=== PATIENT | female | born 1940 | race Hispanic/Latino ===

== ENCOUNTER 2017-04-26 07:08 | Observation (INO) | payer MEDICARE, OTHER ==
[2017-04-23 10:31] VITALS: BMI 26.5
[2017-04-26] MEDS ORDERED: Bupivacaine 0.5% Inj(30mL) ONE (07:26)
[2017-04-26] MEDS ORDERED: Lidocaine 1% Inj (20ml) ONE (07:26)
[2017-04-26] MEDS ORDERED: Lactated Ringer's 1,000 ML IV ONE (08:00)
--- NOTE | 2017-04-26 08:40 | CP.SDSHP ---
Same Day Surgery H & P - History Proposed Procedure: Right foot 5th digit PIPJ arthroplasty and excision of bone 4th digit Pre-Op Diagnosis: Right foot 4th digit bone spur and 5th digit hammertoe - Previous Medical/Surgical History Comments: hypercholesterolemia, hypothyroidism Previous Surgical History: mandible sx - 15 years ago - Allergies Allergies: Allergies No Known Allergies Allergy (Verified 04/23/17 10:31) - Physical Exam Vital Signs: Vital Signs 04/26/17 08:06 Temperature 97.9 F Pulse Rate 65 Respiratory 18 Rate Blood Pressure 153/86 H O2 Sat by Pulse 95 Oximetry Mental Status: Alert & Oriented x3 Neuro: WNL Heart: WNL Lungs: WNL GI: WNL - {Optional Preform as Required} Integument: Other (Erythema and edema to 5th digit) Ortho: Other (Pain on palpation right 5th digit) - Impression Impression: Pt was seen and examined in [facility]. Pt NPO status was confirmed. All Pre-op testing and clearance was in the chart. Pt has exhausted all conservative treatment at this time and is opting for surgical intervention. Pt was explained procedure and post-operative course. All pt's questions were answered to satisfaction. No guarantees were made. Pt understands all risks, benefits and complications of procedure. Pt will follow-up with Dr. Rangel - Date & Time Date: 04/26/17 Time: 08:30 Short Stay Discharge - Short Stay Discharge Admitting Diagnosis/Reason for Visit: M20.41/M25.774 Disposition: TRANS TO OBS Referrals: Gus Rangel DPM [Primary Care Provider] -
--- NOTE | 2017-04-26 08:47 | CP.PCM.PN ---
Subjective - Date & Time of Evaluation Date of Evaluation: 04/26/17 Time of Evaluation: 08:30 - Subjective Subjective: 77 year old female patient with PMH hypercholesterolemia, hypothyroidism, hypercalcemia, and arthritis seen in [facility] for pre-operative evaluation for right foot 4th digit excision of bone spur and 5th digit PIPJ arthroplasty by Dr. Rangel. Patient is accompanied by her daughter at bedside. Patient has nguyễn having pain on her right 4th and 5th digits and has exhausted conservative treatment. Patient now opts for surgical intervention. NPO status confirmed. Patient is NAD and AAOx3. Patient denies N/V/F/D/C/SOB/CP. No other pedal complaints at this time. PMH: hypercholesterolemia, hypothyroidism, hypercalcemia PSH: mandible surgery approx. 15 years ago Meds: levothyroxine, calcium medication (unknown name) All: NKDA SH: No ETOH, 1-2 cigarettes a day x50 years FH: unknown Objective - Vital Signs/Intake and Output Vital Signs (last 24 hours): Temp Pulse Resp BP Pulse Ox 97.9 F 65 18 153/86 H 95 04/26/17 08:06 04/26/17 08:06 04/26/17 08:06 04/26/17 08:06 04/26/17 08:06 - Constitutional Appears: Well, Non-toxic, No Acute Distress - Extremities Exam Additional comments: Vasc: DP and PT pulses palpable 2/4 b/l. CFT <3 seconds to all digits. TG warm to cool. Edema noted right 5th digit Neuro: Gross sensation intact Derm: Erythema noted to 5th digit. Heloma durum noted to dorsum of 5th digit. Heloma molle noted to medial aspect of 5th digit Ortho: Pain upon ROM R 5th digit. Pain on palpation R 5th digit - Neurological Exam Neurological Exam: Alert, Awake, Oriented x3 - Psychiatric Exam Psychiatric exam: Normal Affect, Normal Mood Assessment and Plan - Assessment and Plan (Free Text) Assessment: 77 year old F with painful R 5th digit hammertoe and 4th digit bone spur Plan: Pt was seen and examined in [facility] Pt NPO status was confirmed All Pre-op testing and clearance was in the chart Pt has exhausted all conservative treatment at this time and is opting for surgical intervention Pt was explained procedure and post-operative course All pt's questions were answered to satisfaction No guarantees were made Pt understands all risks, benefits and complications of procedure Pt will follow-up with
[2017-04-26] MEDS ORDERED: Bupivacaine 0.5% 50 ML IJ ONE (08:50)
[2017-04-26] MEDS ORDERED: Lidocaine 1% Inj (20ml) IJ ONE (08:50)
[2017-04-26] MEDS ORDERED: Sodium Chloride 0.9% 500 ML IV SCH (09:00)
[2017-04-26] MEDS ORDERED: Propofol 10 mg/ml Inj (20 ML) ONE (09:14)
[2017-04-26] MEDS ORDERED: Midazolam 2 MG/2 ML VIAL ONE (09:15)
[2017-04-26] MEDS ORDERED: Oxycodone/Acetaminophen 5/325 mg Tab PO PRN ×2 (10:11)
--- NOTE | 2017-04-26 10:18 | PCM.SURG1 ---
Surgeon's Initial Post Op Note - Surgeon's Notes Surgeon: Dr. Rangel Mapping Technician: Greg Alcala PGY2 Type of Anesthesia: IV Sedation, Local Anesthesia Administered By: Dr. Dawson Pre-Operative Diagnosis: Right foot 5th digit hammertoe Operative Findings: see operative note. materials: 4-0 vicryl, 4-0 prolene. injectibles: 4cc 1% lidocaine plain Post-Operative Diagnosis: 1) right foot 5th digit hammertoe. 2) right foot 5th digit purulent abscess. 3) right foot 5th proximal phalanx possible osteomyelitis Operation Performed: Right foot incision and drainage with bone biopsy Specimen/Specimens Removed: 1) 5th digit wound culture. 2) 5th digit proximal interphalangeal joint, adjacent cortical margins- pathology Estimated Blood Loss: EBL {In ML}: 2 Blood Products Given: N/A Drains Used: No Drains Post-Op Condition: Good (ST elevation found intra-op, prompting observational period) Date of Surgery/Procedure: 04/26/17 Time of Surgery/Procedure: 09:00
[2017-04-26] MEDS ORDERED: HYDROmorphone 0.5 mg/0.5 ml ISec IVP PRN (10:49)
[2017-04-26 10:56] LABS: ALB/GLOB RATIO 1.3 (1.0-2.1); ALBUMIN 3.8 g/dL (3.5-5.0); ALT/SGPT 30 U/L (9-52); AST/SGOT 30 U/L (14-36); BLOOD UREA NITROGEN 17 mg/dl (7-17); GFR AFRICAN-AMERICAN > 60; GFR NON-AFRICAN AMERICAN > 60
[2017-04-26] MEDS ORDERED: Sodium Chloride 0.9% 1,000 ML IV SCH (11:00)
--- NOTE | 2017-04-26 11:14 | CARD ---
APPROVED REPORT EKG Measurement Heart [id number] <Conclusion> Normal sinus rhythm Normal ECG
[2017-04-26] MEDS ORDERED: Sodium Chloride 0.9% 1,000 ML IV ONE (12:35)
--- NOTE | 2017-04-26 16:15 | RAD ---
PROCEDURE: Right Foot Radiographs. HISTORY: s/p right foot surgery COMPARISON: None. FINDINGS: BONES: No acute fracture. Status post osteotomy of distal aspect 5th proximal phalanx and proximal aspect 5th middle phalanx. . JOINTS: Severe subluxation/dislocation suspected at 2nd MTP. 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 Bunion deformity. SOFT TISSUES: Diffuse soft tissue swelling over distal metatarsals. OTHER FINDINGS: None. IMPRESSION: Osteotomy 5th proximal and middle phalanges as described. Severe subluxation/ dislocation suspected at 2nd MTP. 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 Bunion.
--- NOTE | 2017-04-26 19:09 | CP.PCM.CON ---
History of Present Illness - History of Present Illness History of Present Illness: 77 y/o female with abnormal ekg post operatively. Pt received IV sedation for minor procedure. Her post op EKG reveals SR @ 72bpm, nml axis, nonspecific t wave flattening diffusely with 0.5 j point elevation in v1, v2. Pt denies symptoms of CP, sob, palp, LH, dizziness, syncope, near syncope. No edema, orthopnea, pnd. Pt denies any hx of syncopal or presyncopal events. Denies any fam hx of SCD or CAD. She denies personal hx of htn, DM, or CAD. She has a hx of dyslipidemia and 50 pyr hx of tobacco use. Today post operatively her bp is elevated, however she is in pain. Review of Systems - Constitutional Constitutional: absent: As Per HPI, Anorexia, Chills, Daytime Sleepiness, Excessive Sweating, Fatigue, Fever, Frequent Falls, Headache, Increased Appetite , Lethargy, Malaise, Night Sweats, Snoring, Sleep Apnea, Weight Gain, Weight Loss, Weakness, Other - EENT Eyes: absent: As Per HPI, Blind Spots, Blurred Vision, Change in Vision, Decreased Night Vision, Diplopia, Discharge, Dry Eye, Exophthalmos, Floaters, Irritation, Itchy Eyes, Loss of Peripheral Vision, Pain, Photophobia, Requires Corrective Lenses, Sees Flashes, Spots in Vision, Tunnel Vision, Other Visual Disturbances, Loss of Vision, Other Ears: absent: As Per HPI, Decreased Hearing, Ear Discharge, Ear Pain, Tinnitus, Abnormal Hearing, Disequilibrium, Dizziness, Other Nose/Mouth/Throat: absent: As Per HPI, Epistaxis, Nasal Congestion, Nasal Discharge, Nasal Obstruction, Nasal Trauma, Nose Pain, Post Nasal Drip, Sinus Pain, Sinus Pressure, Bleeding Gums, Change in Voice, Dental Pain, Dry Mouth, Dysphagia, Halitosis, Hoarsness, Lip Swelling, Mouth Lesions, Mouth Pain, Odynophagia, Sore Throat, Throat Swelling, Tongue Swelling, Facial Pain, Neck Pain, Neck Mass, Other - Breasts Breasts: absent: As Per HPI, Change in Shape, Mass, Pain, Nipple Discharge, Nipple Inversion, Skin Changes, Swelling, Other - Cardiovascular Cardiovascular: absent: As Per HPI, Acrocyanosis, Chest Pain, Chest Pain at Rest , Chest Pain with Activity, Claudication, Diaphoresis, Dyspnea, Dyspnea on Exertion, Edema, Irregular Heart Rhythm, Pain Radiating to Arm/Neck/Jaw, Leg Edema, Leg Ulcers, Lightheadedness, Orthopnea, Palpitations, Paroxysmal Nocturnal Dyspnea, Pedal Edema, Radiating Pain, Rapid Heart Rate, Slow Heart Rate, Syncope, Other - Respiratory Respiratory: absent: As Per HPI, Cough, Dyspnea, Hemoptysis, Dyspnea on Exertion , Wheezing, Snoring, Stridor, Pain on Inspiration, Chest Congestion, Excessive Mucous Production, Change in Mucous Color, Pain with Coughing, Other - Gastrointestinal Gastrointestinal: absent: As Per HPI, Abdominal Pain, Belching, Bloating, Change in Bowel Habits, Change in Stool Character, Coffee Ground Emesis, Constipation, Cramping, Diarrhea, Dyspepsia, Dysphagia, Early Satiety, Excessive Flatus, Fecal Incontinence, Heartburn, Hematemesis, Hematochezia, Loose Stools, Melena, Nausea, Odynophagia, Temesmus, Vomiting, Other - Genitourinary Genitourinary: absent: As Per HPI, Change in Urinary Stream, Difficulty Urinating, Dysuria, Flank Pain, Hematuria, Pyuria, Nocturia, Urinary Incontinence, Urinary Frequency, Urinary Hesitance, Urinary Urgency, Voiding Freq/Small Amts, Freq UTI, Hx Renal/Bladder Calculi, Hx /Renal Surgery, Bladder Distension, Other - Reproductive: Female Reproductive:Female: Post Menopausal. absent: As Per HPI, Amenorrhea, Amenorrhea/ Control, Currently Menstual, Cycle <21 Days, Cycle >35 Days, Cycle Variable, Menses 1-7 Days, Menses >/= 8 Days, Menses Variable, Cycle > 4 Weeks Between, No Menses for 6 Months, Heavy Menses, Light Menses, Normal Menses , Spotting Between Cycles, S/P Hysterectomy, Menopausal, Premenarche, Abnormal Vaginal Bleeding, Dysmenorrhea, Dyspareunia, Genital Lesions, Genital Pruritis, Pelvic Pain, Prolapse Symptoms, Sexual Dysfunction, Vaginal Discharge, Vaginal Dryness, Vaginal Odor, Vaginal Pruritis, Other - Menstruation Menstruation: Post Menopausal. absent: As Per HPI, Amenorrhea, Amenorrhea/ Control, Currently Menstual, Cycle <21 Days, Cycle >35 Days, Cycle Variable, Menses 1-7 Days, Menses >/= 8 Days, Menses Variable, Cycle > 4 Weeks Between, No Menses for 6 Months, Heavy Menses, Light Menses, Normal Menses, Spotting Between Cycles, S/P Hysterectomy, Menopausal, Premenarche, Abnormal Vaginal Bleeding, Dysmenorrhea, Other - Musculoskeletal Musculoskeletal: absent: As Per HPI, Abnormal Gait, Arthralgias, Atrophy, Back Pain, Deformity, Joint Swelling, Limited Range of Motion, Loss of Height, Muscle Cramps, Muscle Weakness, Myalgias, Neck Pain, Numbness, Radiating Pain into Limb, Stiffness, Tingling, Other - Integumentary Integumentary: absent: As Per HPI, Acne, Alopecia, Bleeding Lesions, Change in Hair, Change in Nails, Change in Pigmentation, Changing Lesions, Dry Skin, Erythema, Furuncle, Hirsutism, Lesions, New Lesions, Non-Healing Lesions, Photosensitivity, Pruritus, Rash, Skin Pain, Skin Ulcer, Sores, Striae, Swelling , Unusual Bruising, Wounds, Jaundice, Other - Neurological Neurological: absent: As Per HPI, Abnormal Gait, Abnormal Hearing, Abnormal Movements, Abnormal Speech, Behavioral Changes, Burning Sensations, Confusion, Convulsions, Disequilibrium, Dizziness, Numbness, Focal Weakness, Frequent Falls , Headaches, Lack of Coordination, Loss of Vision, Memory Loss, Paresthesias, Radicular Pain, Restless Legs, Sensory Deficit, Syncope, Tingling, Tremor, Vertigo, Weakness, Other Visual Disturbances, Other - Psychiatric Psychiatric: absent: As Per HPI, Abnormal Sleep Pattern, Anhedonia, Anxiety, Auditory Hallucinations, Behavioral Changes, Change in Appetite, Change in Libido, Confusion, Depression, Difficulty Concentrating, Hallucinations, Homicidal Ideation, Hopelessness, Irritability, Memory Loss, Mood Swings, Panic Attacks, Paranoia, Suicidal Ideation, Visual Hallucinations, Tactile Hallucinations, Other - Endocrine Endocrine: absent: As Per HPI, Change in Body Appearance, Change in Libido, Cold Intolorance, Deepening of Voice, Excessive Sweating, Fatigue, Flushing, Heat Intolorance, Increase in Ring/Shoe/Hat Size, Palpitations, Polydipsia, Polyphagia, Polyuria, Other - Hematologic/Lymphatic Hematologic: absent: As Per HPI, Easy Bleeding, Easy Bruising, Lymphadenopathy, Other Past Patient History - Tetanus Immunizations Tetanus Immunization: Unknown - Past Medical History & Family History Past Medical History?: Yes Past Family History: Reviewed and not pertinent - Past Social History Smoking Status: Current Some Days Smoker Alcohol: None Drugs: Denies Home Situation {Lives}: Alone - CARDIAC Hx Cardiac Disorders: Yes Hx Hypercholesterolemia: Yes - PULMONARY Hx Respiratory Disorders: No - NEUROLOGICAL Hx Neurological Disorder: No - HEENT Hx HEENT Problems: No - RENAL Hx Chronic Kidney Disease: No - ENDOCRINE/METABOLIC Hx Endocrine Disorders: Yes Hx Hypothyroidism: Yes - HEMATOLOGICAL/ONCOLOGICAL Hx Blood Disorders: No Hx Anemia: No Hx Blood Transfusions: No - INTEGUMENTARY Hx Dermatological Problems: No - MUSCULOSKELETAL/RHEUMATOLOGICAL Hx Musculoskeletal Disorders: Yes Hx Arthritis: Yes Hx Back Pain: Yes Hx Falls: No - GASTROINTESTINAL Hx Gastrointestinal Disorders: No - GENITOURINARY/GYNECOLOGICAL Hx Genitourinary Disorders: No - PSYCHIATRIC Hx Psychophysiologic Disorder: No - SURGICAL HISTORY Hx Surgeries: No - ANESTHESIA Hx Anesthesia: No Hx Anesthesia Reactions: No Hx Malignant Hyperthermia: No Has any member of the family had a problem w/ anesthesia?: No Meds Allergies/Adverse Reactions: Allergies Allergy/AdvReac Type Severity Reaction Status Date / Time No Known Allergies Allergy Verified 04/23/17 10:31 - Medications Medications: Current Medications Acetaminophen (Tylenol 325mg Tab) 650 mg PO Q6 PRN PRN Reason: Pain, Mild (1-3) Amlodipine Besylate (Norvasc) 2.5 mg PO DAILY [facility] Last Admin: 04/26/17 18:57 Dose: 2.5 mg Aspirin (Aspirin Chewable) 81 mg PO DAILY [facility] Cephalexin Monohydrate (Keflex) 500 mg PO Q6 [facility] Oxycodone/Acetaminophen (Percocet 5/325 Mg Tab) 1 tab PO Q6 PRN PRN Reason: Pain, moderate (4-7) Stop: 04/29/17 10:12 Last Admin: 04/26/17 13:55 Dose: 1 tab Oxycodone/Acetaminophen (Percocet 5/325 Mg Tab) 2 tab PO Q6 PRN PRN Reason: Pain, severe (8-10) Stop: 04/29/17 10:12 Physical Exam - Constitutional Appears: Well, No Acute Distress - Head Exam Head Exam: ATRAUMATIC, NORMAL INSPECTION, NORMOCEPHALIC - Eye Exam Eye Exam: EOMI, Normal appearance, PERRL Pupil Exam: NORMAL ACCOMODATION, PERRL - ENT Exam ENT Exam: Mucous Membranes Moist, Normal Exam - Neck Exam Neck exam: Positive for: Normal Inspection - Respiratory Exam Respiratory Exam: Clear to Auscultation Bilateral, NORMAL BREATHING PATTERN - Cardiovascular Exam Cardiovascular Exam: REGULAR RHYTHM, +S1, +S2, Systolic Murmur Additional comments: YURI 3/6, nonradiating, loudest at rusb, s1 and s2 present - GI/Abdominal Exam GI & Abdominal Exam: Normal Bowel Sounds, Soft. absent: Tenderness - Rectal Exam Rectal Exam: Deferred - Extremities Exam Extremities exam: Positive for: normal inspection Additional comments: LE dressing CDI post op - Back Exam Back exam: NORMAL INSPECTION - Neurological Exam Neurological exam: Alert, CN II-XII Intact, Oriented x3, Reflexes Normal - Psychiatric Exam Psychiatric exam: Normal Affect, Normal Mood - Skin Skin Exam: Dry, Intact, Normal Color, Warm Results - Vital Signs Recent Vital Signs: Last Vital Signs Temp 98.6 F 04/26/17 15:59 Pulse 77 04/26/17 18:57 Resp 16 04/26/17 15:59 BP 165/90 H 04/26/17 18:57 Pulse Ox 96 04/26/17 15:59 - Labs Result Diagrams: 04/26/17 10:25 Labs: Laboratory Results - last 24 hr 04/26/17 04/26/17 10:25 15:23 Sodium 140 Potassium 4.1 Chloride 111 H Carbon Dioxide 24 Anion Gap 9 L BUN 17 Creatinine 0.8 Est GFR ( Amer) > 60 Est GFR (Non-Af Amer) > 60 Random Glucose 100 Calcium 11.0 H Total Bilirubin 0.3 AST 30 ALT 30 Alkaline Phosphatase 52 Troponin I < 0.0120 Total Protein 6.8 Albumin 3.8 Globulin 3.0 Albumin/Globulin Ratio 1.3 - EKG Data EKG Interpreted by: Myself - EKG Data When Compared to Previous EKG: No Significant Change Assessment & Plan (1) Abnormal EKG Status: Acute (2) Dyslipidemia Status: Acute (3) Tobacco use disorder Status: Acute (4) Hypothyroid Status: Acute (5) Systolic murmur Status: Acute - Assessment and Plan (Free Text) Plan: Pt's ekg changes were present pre-op. THey are nonspecific and not indicative of mycordial infarction. Trop x 1 is negative. Pt has a murmur, and mildly elevated bp post op. I believe her bp elevation is secondary to pain. She may be d/c and should f/u in office in 2-3 weeks. Once pain free bp can be re- evaluated. At this point I would not send her home on bp medication. 65 min total care time. thank you.
--- NOTE | 2017-04-27 00:45 | OP ---
PROCEDURE DATE: 04/26/2017 PRIMARY SURGEON: Gus Rangel DPM MEDICAL BILLER/CODER: Greg Alcala, PGY-II. ANESTHESIOLOGIST: Gera Dawson MD ANESTHESIA TYPE: MAC IV sedation with local. PREOPERATIVE DIAGNOSIS: Right foot fifth digit hammertoe deformity. POSTOPERATIVE DIAGNOSES: 1. Right foot fifth digit hammertoe deformity. 2. Right foot fifth digit purulent abscess. 3. Right foot fifth digit proximal and middle phalynx osteomyelitis PROCEDURE PERFORMED: Right foot incision and drainage with bone biopsy. SPECIMENS: 1. Right foot wound culture. 2. Right foot fifth digit bone culture. INDICATIONS: The patient is a 77-year-old female with the above-stated diagnosis. The patient has exhausted all conservative treatment options and is now in need of surgical intervention. The patient signed a surgical consent after careful explanation of all risks, benefits, complications, and potential alternatives for the proposed surgical procedure. No guaranties were neither given nor implied. All questions were answered. The patient's n.p.o. status was confirmed prior to bringing the patient to the operating room. PREPARATION: The patient was brought into the operating room and placed on the operating room table in a supine position. A pneumatic tourniquet was applied in a supramalleolar position to the right lower extremity and set to 250 mmHg to be inflated once the procedure began. Once IV sedation was confirmed to have been achieved, the patient received a total of 10 mL of 0.5% Marcaine plain in a local block-type fashion to the right foot. Once local anesthesia was confirmed to have been achieved, the right foot was then prepped and draped in the usual sterile manner, tourniquet was inflated and the procedure began. PROCEDURE: Attention was then directed to the dorsal aspect of the right foot fifth digit. Using a #15 blade, a 2.5 cm ellipsoid incision was made on the dorsal aspect of the right fifth digit with apex oriented medially and proximal apex noted oriented laterally. Incision was extended down through subcutaneous tissue layers using #15 blade. Care was taken to avoid all vital neurovascular structures. All bleeders were cauterized and ligated as needed. At this point, capsule of the proximal interphalangeal joint was visualized. Transverse capsulotomy was performed at the proximal interphalangeal joint. Upon violation of the capsule, purulent discharge was expunged from the capsule and immediately cultured. This culture was then passed in the operative field to be sent to microbiology. At this time, capsule and periosteum attachments at the base of the middle phalanx and head of the proximal phalanx remnants were then freed of their capsular, periosteal and fibrous attachments. Nonviable subcutaneous tissue was resected and passed through the operative field to be sent for pathology. At this time, bone quality was assessed of the remaining head and shaft of the proximal phalanx. Nonviable sections were resected using double action bone cutter and passed from the operative field for pathology. Resection continued until strong cortical uncompromised bone was appreciated. Base of middle phalanx was then rongeured and the specimen was passed in the operative field to be sent to pathology. At this time, reduction and decrease of capsular edema and engorgement was assessed and found to be reduced. Incision site was then flushed with copious amounts of bacitracin introduced sterile saline. Once flush was complete, incision site was then visualized and found to be in adequate position. 3-0 Vicryl was used to reapproximate subcutaneous tissue layers. 4-0 Prolene was used to reapproximate dermal and skin layers. Incision site was then dressed with Betadine soaked Adaptic, 4x4 gauze, Kerlix, and Blayne. Attention was then directed into the fourth interspace on the medial aspect of the fifth digit, where a hyperkeratotic lesion was appraised using #15 blade. This lesion was sharply debrided of all nonviable hyperkeratotic tissue to reveal a macerated dermal junction, which bled freely. This area was then cleansed with sterile saline and was dressed with Betadine-soaked Adaptic, 4x4, Kerlix and Blayne. Patient received a total of 4 mL of 1% lidocaine plain in local block-type fashion to the right foot for postoperative pain control. Foot dressings were completed with Kerlix and light Erick wrap. POSTOPERATIVE CONDITION: The patient tolerated the procedure and anesthesia well, though it is noted that the patient had ST elevation during the last quarter of the case. The patient was escorted to the recovery room with neurovascular status intact. Additional assessment of EKG and cardiology consult placed to confirm that the patient is stable for outpatient discharge. Postoperative EKG shows normalization of ST elevation awaiting final clearance from colsulted mosaic technician. The patient admitted for observational period postoperatively. The patient will follow up with Dr. Gus Rangel on an outpatient basis upon full discharge. Greg Alcala DPM [facility]
--- NOTE | 2017-04-27 01:37 | HP ---
HISTORY OF PRESENT ILLNESS: Mrs. Adhikari is a 77-year-old female who was admitted to podiatry service and underwent right foot fifth digit arthroplasty and excision of bone of first digit. She was noted to have elevated blood pressure postop and abnormal EKG and was admitted to telemetry for monitoring. She denies chest pain or shortness of breath, feels very comfortable at present. Her daughter is at bedside and reportedly gives a history the patient not having coronary artery disease or hypertension in the past. PAST MEDICAL HISTORY: Hyperlipidemia and hypothyroidism. FAMILY HISTORY: Noncontributory. SOCIAL HISTORY: Does not smoke or drink. REVIEW OF SYSTEMS: Essentially unremarkable. PHYSICAL EXAMINATION GENERAL: The patient is alert and oriented and feels very comfortable in no apparent distress. VITAL SIGNS: Remarkable for blood pressure of 154/73 down from 173/93, pulse 71, respiratory rate 18. She is afebrile. O2 saturation 100% on room air. SKIN: Fair turgor. HEENT: Pupils are equal and reactive to light and accommodation. NECK: JVP flat. LUNGS: Clear. HEART: Regular. No murmurs or gallops. Breaths are normal. ABDOMEN: Soft, nontender. No organomegaly. There is no chest wall tenderness. EXTREMITIES: Right foot is wrapped in dry surgical gauze. Left lower extremity appears unremarkable. CENTRAL NERVOUS SYSTEM: Grossly intact. RECTAL AND GENITAL: Deferred. LABORATORY DATA: Current exams pending. EKG shows a regular sinus rhythm, but telemetry monitoring done in OR, showed ST elevation diffusely. IMPRESSION: Hypertensive urgency with abnormal EKG, one has to rule out acute coronary syndrome. PLAN: Cardiac evaluation of obtaining troponin q.8 hours for the next 24 hours. Repeat EKG in a.m. If the patient is clear by cardiology, they will discharge home. Case discussed with the patient and daughter. Gaurang Alves MD
[2017-04-27 08:19] VITALS: BP 153/76; PULSE 75; RESP 18; TEMP 97.9; O2SAT 95
--- NOTE | 2017-04-27 08:55 | CP.PCM.DIS ---
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 Status: Acute Hospital Course - Lab Results Lab Results: Micro Results 04/26/17 12:40 Toe Gram Stain - Final 04/26/17 12:40 Other: Please Indicate Gram Stain - Final Most Recent Lab Values Sodium 140 mmol/l (132-148) 04/26/17 10:25 Potassium 4.1 MMOL/L (3.6-5.0) 04/26/17 10:25 Chloride 111 mmol/L (98-107) H 04/26/17 10:25 Carbon Dioxide 24 mmol/L (22-30) 04/26/17 10:25 Anion Gap 9 (10-20) L 04/26/17 10:25 BUN 17 mg/dl (7-17) 04/26/17 10:25 Creatinine 0.8 mg/dL (0.7-1.2) 04/26/17 10:25 Est GFR ( Amer) > 60 04/26/17 10:25 Est GFR (Non-Af Amer) > 60 04/26/17 10:25 Random Glucose 100 mg/dL (65-105) 04/26/17 10:25 Calcium 11.0 mg/dL (8.4-10.2) H 04/26/17 10:25 Total Bilirubin 0.3 mg/dl (0.2-1.3) 04/26/17 10:25 AST 30 U/L (14-36) 04/26/17 10:25 ALT 30 U/L (9-52) 04/26/17 10:25 Alkaline Phosphatase 52 U/L (38-126) 04/26/17 10:25 Troponin I < 0.0120 ng/mL (0.00-0.120) 04/27/17 05:50 Total Protein 6.8 G/DL (6.3-8.2) 04/26/17 10:25 Albumin 3.8 g/dL (3.5-5.0) 04/26/17 10:25 Globulin 3.0 gm/dL (2.2-3.9) 04/26/17 10:25 Albumin/Globulin Ratio 1.3 (1.0-2.1) 04/26/17 10:25 - Hospital Course Hospital Course: cardiac workup negative cleared for discharge by cardiology Discharge Exam - Head Exam Head Exam: ATRAUMATIC, NORMAL INSPECTION, NORMOCEPHALIC - Eye Exam Eye Exam: EOMI, Normal appearance, PERRL Pupil Exam: NORMAL ACCOMODATION, PERRL - GI/Abdominal Exam GI & Abdominal Exam: Normal Bowel Sounds - Rectal Exam Rectal Exam: NORMAL INSPECTION - Extremities Exam Additional comments: r foot surgical dressing - Neurological Exam Neurological exam: Alert, CN II-XII Intact, Normal Gait, Oriented x3, Reflexes Normal - Psychiatric Exam Psychiatric exam: Normal Affect, Normal Mood - Skin Skin Exam: Dry, Intact, Normal Color, Warm Discharge Plan - Follow Up Plan Condition: GOOD Disposition: TRANS TO OBS Patient education suggested?: Yes Referrals: Gus Rangel DPM [Primary Care Provider] -
--- NOTE | 2017-04-27 09:01 | CP.PCM.PN ---
Subjective - Date & Time of Evaluation Date of Evaluation: 04/27/17 Time of Evaluation: 07:30 - Subjective Subjective: 77 year old female patient with PMH hypercholesterolemia, hypothyroidism, hypercalcemia, and arthritis seen at bedside with attending, Dr. Rangel, POD#1 right foot incision and drainage with bone biopsy. Patient is resting comfortably in bed, AAOx3 and NAD. Patient denies any acute events overnight. Patient states she was seen by manager child, Dr. Thornton. Patient reports minimal pain to surgical site but is able to ambulate on her RLE. Patient was seen ambulating to bathroom without surgical shoe at today's visit. Patient denies N/ V/F/D/C/SOB/CP. No other pedal complaints at this time. Objective - Vital Signs/Intake and Output Vital Signs (last 24 hours): Temp Pulse Resp BP Pulse Ox 97.9 F 75 18 153/76 H 95 04/27/17 08:00 04/27/17 08:00 04/27/17 08:00 04/27/17 08:00 04/27/17 08:00 - Medications Medications: Current Medications Acetaminophen (Tylenol 325mg Tab) 650 mg PO Q6 PRN PRN Reason: Pain, Mild (1-3) Amlodipine Besylate (Norvasc) 2.5 mg PO DAILY [facility] Last Admin: 04/26/17 18:57 Dose: 2.5 mg Aspirin (Aspirin Chewable) 81 mg PO DAILY [facility] Cephalexin Monohydrate (Keflex) 500 mg PO Q6 [facility] Last Admin: 04/27/17 04:54 Dose: 500 mg Oxycodone/Acetaminophen (Percocet 5/325 Mg Tab) 1 tab PO Q6 PRN PRN Reason: Pain, moderate (4-7) Stop: 04/29/17 10:12 Last Admin: 04/26/17 13:55 Dose: 1 tab Oxycodone/Acetaminophen (Percocet 5/325 Mg Tab) 2 tab PO Q6 PRN PRN Reason: Pain, severe (8-10) Stop: 04/29/17 10:12 Last Admin: 04/26/17 20:50 Dose: 2 tab - Labs Labs: 04/26/17 10:25 - Constitutional Appears: Well, Non-toxic, No Acute Distress - Extremities Exam Additional comments: RLE focused physical exam: Vasc: DP and PT pulses palpable 2/4 b/l. CFT <3 seconds to all digits. TG warm to warm Edema noted right 5th digit, decreased since yesterday Neuro: Gross sensation intact Derm: Linear incision noted to dorsum of 5th digit. Sutures are intact and well- approximated with no wound dehiscence noted. Erythema noted to 5th digit. Heloma durum noted to dorsum of 5th digit. Heloma molle noted to medial aspect of 5th digit. Ortho: Pain upon ROM R 5th digit. Pain on palpation R 5th digit - Neurological Exam Neurological Exam: Alert, Awake, Oriented x3 - Psychiatric Exam Psychiatric exam: Normal Affect, Normal Mood Assessment and Plan - Assessment and Plan (Free Text) Assessment: 77 year old F POD#1 1) right foot 5th digit hammertoe. 2) right foot 5th digit purulent abscess. 3) right foot 5th proximal phalanx possible osteomyelitis Plan: Patient seen and evaluated at bedside with attending, Dr. Rangel. Charts, labs, vitals reviewed = afebrile Per cardio, EKG changes were present pre-op and are nonspecific and not indicative of mycordial infarction. She may be d/c and should f/u in office in 2 -3 weeks Dressing changed with betadine, adaptic, 4x4, maxi, and an CODIE wrap Stable from podiatry standpoint Patient is to follow up with Dr. Rangel in office on . Podiatry will continue to follow patient while in house
--- NOTE | 2017-04-27 10:12 | CARD ---
APPROVED REPORT EKG Measurement Heart [id number] <Conclusion> Normal sinus rhythm Nonspecific ST and T wave abnormality Abnormal ECG
== END 2017-04-27 11:45 | disposition home or self-care (01) ==
LOC: H.OPSURG 07:08 → INTOOBSV 10:09 → H.TEL 10:09
PROVIDERS: ADMIT Internal Medicine Pulmonary Disease; ATTEND Internal Medicine Pulmonary Disease
DX: M25.774 Osteophyte, right foot (principal); M86.9 Osteomyelitis, unspecified; M20.40 Other hammer toe(s) (acquired), unspecified foot; E03.9 Hypothyroidism, unspecified; E78.00 Pure hypercholesterolemia, unspecified; E78.5 Hyperlipidemia, unspecified; I16.0 Hypertensive urgency; M77.9 Enthesopathy, unspecified; R03.0 Elevated blood-pressure reading, without diagnosis of hypertension; R94.31 Abnormal electrocardiogram [ECG] [EKG]; Z72.0 Tobacco use; E83.52 Hypercalcemia; M19.90 Unspecified osteoarthritis, unspecified site; M54.9 Dorsalgia, unspecified; R01.1 Cardiac murmur, unspecified; R60.9 Edema, unspecified; L57.0 Actinic keratosis
CPT/HCPCS: 28005; 28054; 36415; 73620; 80053; 84484; 87070; 88304; 93005; G0378; J0360; J0690; J1170; J2001; J2250; J2704; J3010; J7030; J7040; J7120